=== PATIENT | male | born 1975 | race Caucasian/White ===

== ENCOUNTER 2018-03-31 20:04 | Emergency (ER) | payer BC ==
[~2018-03-31] VITALS: Ht 177.8 cm; Wt 65.9 kg
[2018-03-31 20:53] LABS: HEMATOCRIT 38.6 % (42.0-52.0); HEMOGLOBIN 13.3 g/dL (13.5-18.0); MEAN CELL VOLUME 91 fl (78-100); MEAN CORPUSCULAR HEMOGLOBIN 31 pg (27-31); MEAN CORPUSCULAR HGB CONC 35 g/dL (33-37); MEAN PLATELET VOLUME 8.6 fl (7.4-10.4); PLATELET COUNT 378 K/mm3 (130-400); RED BLOOD COUNT 4.23 M/mm3 (4.20-5.60); RED CELL DISTRIBUTION WIDTH 12.6 % (11.5-14.5); WHITE BLOOD COUNT 11.8 K/mm3 (4.8-10.8)
[2018-03-31 21:01] LABS: ALBUMIN 4.4 g/dL (3.5-5.0); CALCIUM 9.4 mg/dL (8.4-10.2); POTASSIUM 3.8 mmol/L (3.6-5.0); TOTAL BILIRUBIN 0.9 mg/dL (0.2-1.3); TOTAL PROTEIN 7.2 g/dL (6.3-8.2)
[2018-03-31 21:08] LABS: PARTIAL THROMBOPLASTIN TIME 29.7 SECONDS (21.0-32.0); PROTHROMBIN TIME 10.8 SECONDS (9.0-12.0)
[2018-03-31 21:21] LABS: URINE APPEARANCE CLEAR; URINE BILIRUBIN NEGATIVE (NEGATIVE); URINE BLOOD NEGATIVE (NEGATIVE); URINE COLOR YELLOW; URINE GLUCOSE NEGATIVE (NEGATIVE); URINE KETONE NEGATIVE (NEGATIVE); URINE LEUKOCYTE ESTERASE NEGATIVE (NEGATIVE); URINE NITRATE NEGATIVE (NEGATIVE); URINE PROTEIN(semi-quant) TRACE mg/dL (NEGATIVE); URINE UROBILINOGEN NORMAL (NORMAL)
[2018-03-31 21:26] LABS: URINE WBC 0-1 /hpf (0-3)
[2018-03-31 21:27] LABS: URINE MUCUS PRESENT (NOT PRESENT)
[2018-03-31 21:32] LABS: LYMPHOCYTE 19 % (20-51); MONOCYTE 6 % (3-10); NEUTROPHILS 74 % (42-75)
[2018-03-31] MEDS ORDERED: PREDNISONE20 M1 PO (22:26)
[2018-03-31] MEDS ORDERED: ZITHROMAX Z PA250 MG PO (22:26)
[2018-03-31 22:37] VITALS: BP 124/80
== END 2018-03-31 23:07 | disposition home or self-care (01) ==
LOC: ED 20:04
PROVIDERS: Nurse Practitioner
DX: J20.9 Acute bronchitis, unspecified (principal); F17.210 Nicotine dependence, cigarettes, uncomplicated; Z87.01 Personal history of pneumonia (recurrent)
CPT/HCPCS: J1885

== ENCOUNTER → 2018-04-24 | Outpatient (CLI) | payer BC ==
[~2018-04-24] VITALS: Ht 180.3 cm; Wt 65.9 kg
[~2018-04-24] MED LIST: PREDNISONE20 M1 PO; ZITHROMAX Z PA250 MG PO
[2018-04-24 12:16] VITALS: BP 105/59
[2018-04-24 13:30] LABS: EOS % 0.5 % (0.0-4.0); HEMATOCRIT 42.4 % (42.0-52.0); HEMOGLOBIN 14.4 g/dL (13.5-18.0); LYMPH# 1.5 (1.50-4.00); MEAN CELL VOLUME 92 fl (78-100); MEAN CORPUSCULAR HEMOGLOBIN 31 pg (27-31); MEAN CORPUSCULAR HGB CONC 34 g/dL (33-37); MEAN PLATELET VOLUME 8.8 fl (7.4-10.4); MONO # 0.7 (0.20-0.80); NEU # 3.7 (1.40-6.50); PLATELET COUNT 365 K/mm3 (130-400); RED BLOOD COUNT 4.61 M/mm3 (4.20-5.60); RED CELL DISTRIBUTION WIDTH 13.1 % (11.5-14.5); WHITE BLOOD COUNT 5.8 K/mm3 (4.8-10.8)
[2018-04-24 13:53] LABS: D-DIMER 0.63 mg/L FEU (0.15-0.50)
== END ==
LOC: LAB 11:43 → RAD 11:43
PROVIDERS: Nurse Practitioner
DX: J43.9 Emphysema, unspecified (principal); R07.9 Chest pain, unspecified; R61 Generalized hyperhidrosis; R05 Cough; R79.89 Other specified abnormal findings of blood chemistry
CPT/HCPCS: Q9967

== ENCOUNTER 2018-06-27 09:39 | Emergency (ER) | payer BC ==
[~2018-06-27] VITALS: Ht 177.8 cm; Wt 65.9 kg
[2018-06-27] MEDS ORDERED: BAYER BACK & B1 EACH PO (09:54)
[2018-06-27] MEDS ORDERED: CYCLOBENZAPRINE10 M1 PO (10:29)
[2018-06-27] MEDS ORDERED: NORCO 325 MG-51 TA1 PO (10:29)
[2018-06-27 10:46] VITALS: BP 134/86
== END 2018-06-27 10:46 | disposition home or self-care (01) ==
LOC: ED 09:39
DX: M54.5 Low back pain (principal); M54.16 Radiculopathy, lumbar region; J86.9 Pyothorax without fistula; Z87.891 Personal history of nicotine dependence
CPT/HCPCS: J1885

== ENCOUNTER 2020-03-16 19:26 | Emergency (ER) | payer BC ==
[~2020-03-16] VITALS: Wt 67.1 kg
[~2020-03-16 19:26] MED LIST changes: +BAYER BACK & B1 EACH PO; +CYCLOBENZAPRINE10 M1 PO; +NORCO 325 MG-51 TA1 PO
[2020-03-16 20:07] LABS: HEMATOCRIT 45.1 % (42.0-52.0); HEMOGLOBIN 15.3 g/dL (13.5-18.0); MEAN CELL VOLUME 90 fl (78-100); MEAN CORPUSCULAR HEMOGLOBIN 31 pg (27-31); MEAN CORPUSCULAR HGB CONC 34 g/dL (33-37); MEAN PLATELET VOLUME 8.2 fl (7.4-10.4); PLATELET COUNT 421 K/mm3 (130-400); RED BLOOD COUNT 5.02 M/mm3 (4.20-5.60); RED CELL DISTRIBUTION WIDTH 12.9 % (11.5-14.5); WHITE BLOOD COUNT 12.3 K/mm3 (4.8-10.8)
[2020-03-16 20:13] LABS: LYMPHOCYTE 11 % (20-51); MONOCYTE 7 % (3-10); NEUTROPHILS 80 % (42-75)
[2020-03-16 20:18] LABS: POTASSIUM 3.5 mmol/L (3.5-5.1)
[2020-03-16 20:19] LABS: CALCIUM 10.1 mg/dL (8.3-10.5)
[2020-03-16 20:20] LABS: TOTAL PROTEIN 7.4 g/dL (6.4-8.3)
[2020-03-16 20:22] LABS: TOTAL BILIRUBIN 1.2 mg/dL (0.2-1.2)
[2020-03-16 21:47] LABS: URINE APPEARANCE HAZY; URINE COLOR YELLOW
[2020-03-16 21:48] LABS: URINE BILIRUBIN NEGATIVE (NEGATIVE); URINE BLOOD TRACE (NEGATIVE); URINE GLUCOSE NEGATIVE (NEGATIVE); URINE KETONE 2+ (NEGATIVE); URINE LEUKOCYTE ESTERASE NEGATIVE (NEGATIVE); URINE MUCUS PRESENT (NOT PRESENT); URINE NITRATE NEGATIVE (NEGATIVE); URINE PROTEIN(semi-quant) 1+ mg/dL (NEGATIVE); URINE UROBILINOGEN NORMAL (NORMAL); URINE WBC 0-1 /hpf (0-3)
[2020-03-16 22:55] VITALS: BP 91/75
== END 2020-03-16 23:07 | disposition short-term general hospital (02) ==
LOC: ED 19:26
PROVIDERS: Family Medicine
DX: K35.80 Unspecified acute appendicitis (principal); Z87.891 Personal history of nicotine dependence
CPT/HCPCS: J2270; J2405; J2543; J7030; Q9967